=== PATIENT | male | born 1965 | race Caucasian/White ===

== ENCOUNTER 2024-08-27 17:49 | Emergency (ER) | payer BC | END 2024-08-27 18:51 | disposition home or self-care (01) | LOC: KA.ED 17:49 | DX: M70.21 Olecranon bursitis, right elbow (principal); E66.9 Obesity, unspecified; Z86.16 Personal history of COVID-19; Z68.32 Body mass index [BMI] 32.0-32.9, adult | CPT/HCPCS: 99283 ==